=== PATIENT | female | born 1975 | race Caucasian/White ===

== ENCOUNTER 2021-06-30 07:58 | Observation (INO) ==
[2021-06-30] MEDS ORDERED: WATER, STERILE FOR INJ 10 ML VIAL ONE (08:18)
[2021-06-30] MEDS ORDERED: VANCOMYCIN HCL 1000MG/20ML VIAL ONE (08:18)
[2021-06-30] MEDS ORDERED: LIDOCAINE 1% LOCAL 20 ML VIAL ONE (08:18)
[2021-06-30] MEDS ORDERED: BUPIVACAINE 0.25% 30 ML VIAL ONE (08:18)
[2021-06-30] MEDS ORDERED: MIDAZOLAM HCL 5 MG/ML 1 ML VIAL ONE (08:55)
[2021-06-30] MEDS ORDERED: fentaNYL citrate 100 MCG/2 ML VIAL ONE ×2 (08:55→09:25)
--- NOTE | 2021-06-30 08:56 | Pre Anesthesia Assessment ---
Date of Service June 30, 2021 Pre Sedation Assessment Vital Signs Temp Pulse Resp BP Pulse Ox 06/30/21 08:15 37.2 C 83 16 159/104 H 95 Cardiovascular + regular rate and + regular rhythm Respiratory + respiratory effort normal Pre-Sedation Airway Assessment Smoking Status: Former smoker Hx Sleep Apnea: No Hx Difficult Intubation: No Short, Thick Neck: No Thyromental Distance: > or= 3.5 Finger Breadths Oral Cavity: + WNL Mallampati Class: II ASA: ASA3 NPO Status Date of Last Intake of Fluids: 06/29/21 Time of Last Intake of Fluids: 22:00 Date of Last Intake of Solid Food: 06/29/21 Time of Last Intake of Solid Foods: 22:00 Notes The planned sedation has been discussed with the patient. Informed Consent was obtained. I have identified the patient, determined the appropriateness of sedation and have assessed the patient immediately prior to the procedure. All medicine(s) and interventions are by my order.
--- NOTE | 2021-06-30 08:56 | History & Physical Bridge Note ---
Date of Service June 30, 2021 History & Physical Bridge Note I have examined the patient, reviewed the History & Physical and in the interval since the performance of the History & Physical I have noted the following changes of clinical significance: no changes noted
[2021-06-30] MEDS ORDERED: ACETAMINOPHEN 325 MG TAB PO PRN (09:53)
--- NOTE | 2021-06-30 09:53 | Post Anesthesia Assessment ---
Date of Service June 30, 2021 Post Sedation Assessment Vital Signs Temp Pulse Resp BP Pulse Ox 06/30/21 08:15 37.2 C 83 16 159/104 H 95 Recovery Score Activity: Moves 4 extremities Respiration: Deep Breath/Cough Circulation: +/-20% PreAnes Value Consciousness: Arouseable (by name) Oxygen Saturation: > 92% On Room Air Discharge Sedation Level of Care: Fast Track Phase II Post Sedation Plan On clinical assessment, the patient appears to have tolerated the sedation without complications. Patient is recovering as anticipated. Patient will continue to be monitored by nursing and may be discharged when sedation discharge criteria are met per below protocol. Upon Completions of procedure up to 15 minutes continue every 5 minute vital signs and the P.A.R. score; then discharge to a Phase I or Fast Track to Phase II per the following guidelines: * Discharge Patient to appropriate Phase II area if PAR is 8 or greater or return to pre- procedure baseline. The post - procedure orders will be as directed. * If PAR score is less than 8 or not return to pre-procedure baseline then patient will follow Phase I monitoring till PAR is reached for Phase II. The Phase I may be done in procedure room or may call to secure a Phase I area. * If naloxone or flumazenil are used for reversal, hold in Phase I for continued monitoring from when last reversal dose was given for a minimum of 60 minutes or longer pending the nurse and/or physician discretion of patient condition before discharge to Phase II. Please call the Sedation Physician to re-evaluate and complete post-note for discharge to Phase II area. Do NOT discharge from procedure sedation or Phase 1 until post- sedation evaluation note is complete by procedure /sedation MD Sedation Discharge Instructions to be given to the patient at discharge to home.
--- NOTE | 2021-06-30 09:53 | Electrophysiology Report ---
Date of Service June 30, 2021 Electrophysiology Procedure Electrophysiology Procedure Report Procedure performed: Implantation of single-chamber ICD Staff powder and primer canning leader: Lionel Barrow MD Indication: The patient is a 45-year-old woman with a history of a cardiac arrest. There were no definite reversible causes. She was advised to undergo implantation of a defibrillator as secondary prevention against sudden cardiac . Procedure in detail: The patient was informed of the risks benefits and alternatives to the intended procedure and she wished to proceed. [] was taken to the electrophysiology suite in a fasting state. A preoperative antibiotic had been administered. The patient was monitored electrocardiographically throughout today's procedure and conscious sedation was administered per protocol. The left upper pectoral area is prepped and draped in usual sterile fashion. This area was anesthetized using subcutaneous administration of a xylocaine solution. An incision was made at this site and carried down to the prepectoralis fascia using sharp dissect ion. Electrocautery was also employed for dissection as well as for hemostasis. A device pocket was fashioned tissues above the pectoralis muscle. Subsequent to this maneuver the left axillary vein was accessed using modified Seldinger technique. Sheath upsized over guidewire at the site and use facilitate passage of the ICD lead to the right ventricular apex under fluoroscopic guidance. Adequate sensing and threshold parameters were obtained prior to active-fixation of lead to the endocardial surface. The proximal portion of lead was then sutured the prepectoralis fascia using nonabsorbable suture. The device pocket was irrigated with antibiotic solution. The lead was then attached to the device. The device and lead were then placed in the pocket and pocket was closed in 3 layers of absorbable suture. Steri-Strips and sterile dressing were applied. The device was tested noninvasively prior to conclusion the procedure. The patient tolerated procedure well there no immediate com plications. Equipment used: New pulse generator: [email or web address]. Model number: [id number] serial number [id number] Right ventricular lead: [employer]. Model number: 6935M serial number [id number] Measured data: Right ventricular lead: R waves measured 4.5 mV. Pacing threshold 0.5 V at 0.4 ms with a pacing impedance of 456 ohms Impression: Successful implantation of single-chamber ICD [facility] Electrophysiology codes ICD Procedure 1: ICD: 98043 Insert single or dual ICD system PG Moderate Sedation Codes Moderate Sedation Codes Procedure 1: Sedation/Anesthesia: 67670 Mod Sedation by the same physician;Init15 Min Child Age 5 & Up Procedure 2: Sedation/Anesthesia: 31817 Mod Sedation by the same physician; Ea [id number] Minutes
--- NOTE | 2021-06-30 11:25 | Electrocardiogram Report ---
Test Reason : Blood Pressure : / mmHG Vent. Rate : 068 BPM Atrial Rate : 068 BPM P-R Int : 182 ms QRS Dur : 078 ms QT Int : 414 ms P-R-T Axes : 047 012 028 degrees QTc Int : 440 ms Normal sinus rhythm When compared with ECG of 26-JUL-2010 13:53, No significant change was found Confirmed by Lionel Barrow ([id number]) on 06/30/2021 11:24:28 AM Referred By: Jose Barrow Confirmed By:Trey Barrow
[2021-06-30] MEDS: oxyCODONE HCL IR 5 MG TAB (IMMEDIATE RELEASE) PO PRN ×3 (11:40→20:44)
[2021-06-30] MEDS ORDERED: NITROGLYCERIN SL 0.4 MG/TAB TAB SL PRN (13:50)
[2021-06-30] MEDS ORDERED: ZOLPIDEM TARTRATE 10 MG TAB PO PRN (16:51)
[2021-06-30] MEDS ORDERED: ceFAZolin 2000MG 2,000 MG/15 ML SYR IV ONE (17:15)
[2021-06-30] MEDS ORDERED: ceFAZolin 1000MG 1,000 MG/7.5 ML SYR IV ONE (17:52)
[2021-06-30] MEDS ORDERED: ATORVASTATIN 40 MG TAB PO SCH (21:00)
[2021-07-01] MEDS: oxyCODONE HCL IR 5 MG TAB (IMMEDIATE RELEASE) PO PRN ×2 (03:31→08:38)
--- NOTE | 2021-07-01 07:15 | XRay Report ---
XR chest 2V PA/lateral CLINICAL HISTORY: Pacemaker insertion. COMPARISON STUDY: Chest radiograph July 26, 2010. FINDINGS: There is no pneumothorax following placement of a left subclavian AICD/pacer. Lead tip proj ects over the right ventricle. Cardiomediastinal silhouette is stable. There is no evidence for pulmo nary edema. IMPRESSION: No pneumothorax placement of a left subclavian AICD/pacer. ACT 112: Negative or not required by law. Electronically signed by: Brandon Barrett M.D. 07/01/2021 7:13 AM
[2021-07-01] MEDS ORDERED: ASPIRIN 81 MG CHEW PO SCH (09:00)
[2021-07-01] MEDS ORDERED: CLOPIDOGREL BISULFATE 75 MG TAB PO SCH (09:00)
[2021-07-01] MEDS ORDERED: lisinopril 5 MG TAB PO SCH (09:00)
[2021-07-01] MEDS ORDERED: PANTOprazole 40 MG TAB PO SCH (09:00)
[2021-07-01] MEDS ORDERED: METOPROLOL SUCC 50MG EXT REL TAB PO SCH (09:00)
[2021-07-01] MEDS ORDERED: MONTELUKAST SODIUM 10 MG TABLET PO SCH (09:00)
--- NOTE | 2021-07-01 10:30 | Discharge Summary ---
Date of Service July 01, 2021 Admission HPI Per Admitting Provider Patient is a 45-year-old woman with a history of an [id number] cardiac arrest who presents for implantation of an ICD as secondary prevention against sudden cardiac . Principal Diagnosis Ventricular fibrillation Discharge Exam At time of discharge the device implant site has some mild edema, but no evidenc e of hematoma. Mild ecchymosis. No erythema or drainage. Discharge Data Allergies Allergy/AdvReac Type Severity Reaction Status Date / Time No Known Allergies Allergy Unknown Verified 06/30/21 08:33 Procedures Performed Operation Date: 06/30/21 09:00 Actual Procedures p ICD Insertion Single or Dual - Jose Barrow MD Ordered Studies 06/30/21 06:35 CL Cath Imgs for PACS use only Routine Hospital Course (1) Ventricular fibrillation: Addendum admission the patient underwent implantation of single-chamber Medtronic ICD. The procedure was uncomplicated. Over the course of the evening she did have 1 episode of sharp chest discomfort that was localized to the right upper chest area. Some radiation to the shoulder. This lasted 10 minutes and resolved without any particular intervention. Following morning the patient was feeling well without recurrence of the symptoms. No pleuritic symptoms. Device interrogation revealed good function of the right ventricular lead. Chest x-ray demonstrated stable lead position without evidence of pneumothorax. Total Time Total Time Spent Total Time Spent (In Minutes): 15 Discharge Plan Discharge Items Patient Disposition: Home - Self-Care Reason For Visit: Myocardial Bridge, Ventricular Fibrillation Discharge Diagnosis: ventricular fibrillation Condition on Discharge: Good Activity: Resume your previous activity Lifting: No more than 5 pounds Lifting Comment: No lifting left arm above shoulder or behind neck for 6 weeks Bathing: Keep incision dry Bathing Comment: keep wound dry and steri-strip intact until f/u next week Sexual Activity: When tolerated Driving/Machine Use: Resume 1 day after discharge Non-emergency contact: Pillow Cleaner Call non-emergency contact if: you have any medication questions, your symptoms worsen, your pain is not controlled, you have a fever, your wound has increased redness, your wound has increased drainage and your wound pain has increased Follow-up/Referrals: Lawrence Sanders MD [Primary Care Provider] - Diet: Regular Addtl Attending Provider Instructions: none Pending Studies at Discharge: No Stand-Alone Forms: [employer], Smoking Cessation Medications and DC Order Prescriptions: New oxycodone 5 mg tablet 5 mg PO Q4H PRN (Reason: pain) Qty: 7 RF: 0 Continued aspirin 81 mg tablet,chewable 81 mg PO QAM RF: 0 atorvastatin 80 mg tablet 80 mg PO HS RF: 0 ibuprofen 600 mg tablet 600 mg PO Q6H PRN (Reason: Pain) RF: 0 lisinopril 5 mg tablet 5 mg PO QAM RF: 0 nitroglycerin 0.4 mg tablet, sublingual 0.4 mg sublingual Q5M PRN (Reason: Chest Pain) RF: 0 pantoprazole 40 mg tablet,delayed release (DR/EC) 40 mg PO QAM RF: 0 naproxen 500 mg tablet 500 mg PO BID PRN (Reason: Pain) RF: 0 montelukast [Singulair] 10 mg tablet 10 mg PO DAILY RF: 0 metoprolol succinate 100 mg tablet extended release 24 hr 100 mg PO DAILY Qty: 90 RF: 3 clopidogrel 75 mg tablet 75 mg PO QAM RF: 0 Discharge Orders: Discharge Order (Routine); Ordered 07/01/21 Ordered By: Jose Barrow Admission Data Admit Date/Time: 06/30/21 09:18 Attending Provider: Jose Barrow Admit Provider: Jose Barrow Primary Care Provider: Lawrence Sanders Coding Level of Care Code 94824 OBS Care - Discharge Diagnoses Ventricular fibrillation I49.01
--- NOTE | 2021-07-01 10:48 | Electrocardiogram Report ---
Test Reason : Blood Pressure : / mmHG Vent. Rate : 071 BPM Atrial Rate : 071 BPM P-R Int : 178 ms QRS Dur : 078 ms QT Int : 402 ms P-R-T Axes : 041 011 032 degrees QTc Int : 436 ms Normal sinus rhythm When compared with ECG of 30-JUN-2021 10:40, No significant change was found Confirmed by Lionel Barrow ([id number]) on 07/01/2021 10:47:26 AM Referred By: Jose Barrow Confirmed By:Trey Barrow
== END 2021-07-01 12:48 | disposition home or self-care (01) ==
LOC: 2S 07:58 → EP 07:58
PROC: EPB.ICD (2021-06-30 09:00)